=== PATIENT | male | born 1955 | race Caucasian/White ===

== ENCOUNTER → 2025-01-02 | Outpatient (CLI) | payer OTHER, SELFPAY ==
[2025-01-02 13:16] LABS: Basophils % (Auto) 0 % (0-2.5); Eosinophils # (Auto) 0.2 Thou/mm3 (0.0-0.5); Eosinophils % (Auto) 3 % (0-10); Hematocrit 39.9 % (41.0-53.0); Hemoglobin 13.2 g/dL (13.5-16.0); Immature Granulocytes % (Auto) 1 % (0-0); Immature Granulocytes Auto 0.03 Thou/mm3 (0.00-0.00); Lymphocytes # (Auto) 1.1 Thou/mm3 (1.0-4.8); Lymphocytes % (Auto) 23 % (10-50); Mean Corpuscular HGB Conc 33.1 g/dl (31.0-37.0); Mean Corpuscular Hemoglobin 29.6 pg (25.0-35.0); Mean Corpuscular Volume 90 fL (80-100); Monocytes # (Auto) 0.4 Thou/mm3 (0.0-0.8); Monocytes % (Auto) 9 % (0-12); Neutrophils # (Auto) 3.2 Thou/mm3 (1.8-7.7); Neutrophils % (Auto) 64 % (37-80); Nucleated Red Blood Cell % 0 /100 WBC (0); Platelet Count 199 Thou/mm3 (140-440); RDW Standard Deviation 42.7 fL (35.1-43.9); Red Blood Count 4.46 Miln/mm3 (4.50-5.90); White Blood Count 4.9 Thou/mm3 (3.8-10.6)
[2025-01-02 13:25] LABS: Prostate Specific Antigen 2.96 ng/mL (0-4.00)
[2025-01-02 13:31] LABS: Alanine Aminotransferase 13 U/L (10-49); Albumin, Serum 4.2 gm/dL (3.4-4.8); Albumin/Globulin Ratio 1.9 (1.2-2.2); Alkaline Phosphatase 53 U/L (46-116); Anion Gap 7 (7-16); Aspartate Amino Transferase 17 U/L (0-34); BUN/Creatinine Ratio 20 Ratio (12-20); Bilirubin,Total 0.5 mg/dL (0.3-1.2); Blood Urea Nitrogen 18 mg/dL (9-23); Calcium 9.5 mg/dL (8.3-10.6); Calcium (Corrected) 9.5 mg/dL (8.5-10.1); Carbon Dioxide 31.7 mMol/L (20.0-31.0); Cardiac Risk Estimate 2.7 RATIO (4.0-6.7); Chloride 102 mMol/L (98-107); Cholesterol 156 mg/dL (132-200); Creatinine (Component) 0.9 mg/dL (0.6-1.3); Globulin 2.2 gm/dL (2.3-3.5); Glucose 170 mg/dL (74-106); HDL Cholesterol 58 mg/dL (40-60); LDL Cholesterol,Calculated 81 mg/dL (0-130); Osmolality,Calculated 287 (275-295); Potassium 4.5 mMol/L (3.4-5.1); Sodium 141 mMol/L (136-145); Total Protein 6.4 gm/dL (5.7-8.2); Triglycerides 87 mg/dL (30-150); eGFR > 60 See Note
[2025-01-02 13:34] LABS: Glucose Estimated Average 123 mg/dL (80-131); Hemoglobin A1C 5.9 % Hgb (4.8-6.0)
== END | disposition home or self-care (01) ==
LOC: COPL 12:25
PROVIDERS: PCP Family Medicine; Referring Provider Family Medicine; Visit Provider Family Medicine
DX: I10 Essential (primary) hypertension (principal); E11.9 Type 2 diabetes mellitus without complications; E78.2 Mixed hyperlipidemia; N40.1 Benign prostatic hyperplasia with lower urinary tract symptoms
CPT/HCPCS: 36415; 80053; 80061; 83036; 84153; 85025

== ENCOUNTER → 2025-07-19 | Outpatient (CLI) | payer OTHER, SELFPAY ==
[2025-07-19 11:47] LABS: Glucose Estimated Average 131 mg/dL (80-131); Hemoglobin A1C 6.2 % Hgb (4.8-6.0)
[2025-07-19 11:58] LABS: Creatinine MALB Rnd Ur 64 mg/dL (30-125); Microalbumin Creat Ratio 6 mg/gCrea (<30); Microalbumin, Random Urine 4 mg/L (0-300)
== END | disposition home or self-care (01) ==
LOC: COPL 10:03
PROVIDERS: PCP Family Medicine; Referring Provider Family Medicine; Visit Provider Family Medicine
DX: E11.9 Type 2 diabetes mellitus without complications (principal)
CPT/HCPCS: 36415; 82043; 82570; 83036